=== PATIENT | male | born 1980 | race Caucasian/White ===

== ENCOUNTER 2022-07-01 23:24 | Emergency (ER) | payer OTHER ==
[~2022-07-01] VITALS: Ht 175.3 cm; Wt 120.2 kg
[2022-07-02] MEDS ORDERED: CEPHALEXIN 500 MG CAPSULE PO STA (00:15)
[2022-07-02] MEDS ORDERED: TETANUS/DIPHTHERIA TOXOID [ADULT] 0.5 ML VIAL IM ONE (00:24)
[2022-07-02] MEDS ORDERED: DIPH,PERTUSS(ACELL),TET VAC/PF 0.5 ML VIAL IM ONE (00:30)
[2022-07-02 01:25] VITALS: BP 122/76
[2022-07-02] MEDS ORDERED: CEPH250C2 PO (01:28)
== END 2022-07-02 01:37 | disposition home or self-care (01) ==
LOC: EDH 23:24
DX: S61.221A Laceration with foreign body of left index finger without damage to nail, initial encounter (principal); X58.XXXA Exposure to other specified factors, initial encounter; Y93.89 Activity, other specified; Y92.89 Other specified places as the place of occurrence of the external cause; Y99.8 Other external cause status
CPT/HCPCS: 12001; 90471; 90714; 90715